=== PATIENT | male | born 1950 | race Caucasian/White ===

== ENCOUNTER → 2016-03-16 | Outpatient (CLI) | payer OTHER ==
--- NOTE | 2016-03-16 16:48 | US ---
Bilateral Duplex Carotid Sonography at 1109 hours Clinical Indications: Known carotid artery disease. Follow up. Hyperlipidemia. Diabetes. Comparison: May 2014. Technique: The cervical portions of the carotid and vertebral arteries were imaged and interrogated by duplex ultrasound. Findings: Right Carotid: The common carotid artery, bifurcation, and origin of the internal and external carot id artery are well imaged. Doppler velocity estimates in cm/sec are as follows; ICA 104, CCA 91, and ECA 108. ICA to CCA ratio is 0.9. Mild smooth atherosclerotic plaque is seen at the right carotid bul b with no significant visualized stenosis. Waveform appearance is normal. Left Carotid: The common carotid artery, bifurcation, and origin of the internal and external caroti d artery are well imaged. Doppler velocity estimates in cm/sec are as follow: ICA 99, CCA 84, and ECA 93. ICA to CCA ratio is 0.8. No significant atherosclerotic plaque is seen at the left carotid bulb. Waveform appearance appears normal. Vertebral Arteries: Antegrade flow is shown by pulsed Doppler of each vertebral artery. Impression: Mild smooth atherosclerotic plaque is seen at the right carotid bulb with no flow signif icant stenosis. No significant plaque or stenosis on the left. Measurement of carotid stenosis is based on velocity parameters that correlate the residual internal carotid diameter with [place] Symptomatic Carotid Endarterectomy Trial (NASCET) based on steno sis levels.
== END ==
LOC: FIMAGING 10:49
PROVIDERS: ATTEND Internal Medicine Cardiovascular Disease
DX: I70.8 Atherosclerosis of other arteries (principal); I25.10 Atherosclerotic heart disease of native coronary artery without angina pectoris; E78.5 Hyperlipidemia, unspecified; I10 Essential (primary) hypertension; E11.9 Type 2 diabetes mellitus without complications

== ENCOUNTER → 2016-03-19 | Outpatient (CLI) | payer OTHER ==
--- NOTE | 2016-03-20 08:05 | DX ---
DEXA Bone Densitometry Technique: DEXA scan was performed on [employer] Discovery W Bone Densitometer Indication: Special screening examination Comparator Study: None Results: Lumbar Spine BMD: 1.156 T-score: +0.6 Total Hip (Right) BMD: 0.926 T-score: -0.7 Femoral Neck (Right) BMD: 0.740 T-score: -1.4 Total Hip (Left) BMD: 0.941 T-score: -0.6 Femoral Neck (Left) BMD: 0.745 T-score: -1.4 CONCLUSION: Osteopenia ADDITIONAL COMMENTS: By FRAX calculation, the estimated 10 year probability of any major osteoporotic fracture is 9.7%. Th e estimated 10 year probability of hip fracture is 1.3%. Consider repeating the study in 2-3 years if clinically indicated NOTE: The risk of osteoporotic fractures increases approximately twofold for each 1.0 SD decrease in T-score. The T-score represents the standard deviations from a young normal, same sex, reference po pulation. Low bone density is not the only risk factor for fracture. Clinical factors to consider include fall risk, previous osteoporotic fractures, family history of fractures, smoking, and low body weight. Patients who have an unexpectedly low BMD may need to be evaluated for secondary causes of low bone m ineral density. In comparing the present study to a prior study, lack of a significant increase or decrease in BMD ma y signify efficacy of the patient's present treatment. Bone mineral density measurements performed with densitometers produced by different manufacturers ar e not comparable. For the most reproducible BMD measurement, subsequent exams should be performed on the same densitometer.
== END ==
LOC: BMCIMAGING 10:41
PROVIDERS: ATTEND Internal Medicine Endocrinology, Diabetes & Metabolism
DX: Z13.89 Encounter for screening for other disorder (principal); M85.80 Other specified disorders of bone density and structure, unspecified site

== ENCOUNTER → 2016-04-24 | Outpatient (CLI) | payer OTHER | LOC: BMCIMAGING 13:37 | PROVIDERS: ATTEND Internal Medicine | DX: R05 Cough (principal); R09.02 Hypoxemia ==

== ENCOUNTER → 2017-10-14 | Outpatient (CLI) | payer OTHER | LOC: BHFA 15:15 | PROVIDERS: ATTEND Internal Medicine Cardiovascular Disease | DX: I48.91 Unspecified atrial fibrillation (principal); I25.10 Atherosclerotic heart disease of native coronary artery without angina pectoris; Z95.0 Presence of cardiac pacemaker ==

== ENCOUNTER → 2018-03-21 | Outpatient (CLI) | payer OTHER | LOC: FIMAGING 09:50 | PROVIDERS: ATTEND Internal Medicine | DX: K80.20 Calculus of gallbladder without cholecystitis without obstruction (principal); K76.0 Fatty (change of) liver, not elsewhere classified ==